=== PATIENT | male | born 1950 | race Caucasian/White ===

== ENCOUNTER → 2021-07-02 07:49 | Outpatient (CLI) | payer OTHER, SELFPAY ==
[2021-07-02 14:15] LABS: COVID19 -Nasal RAPID Negative (Negative)
== END ==
PROVIDERS: PCP Internal Medicine; Visit Provider Physical Medicine & Rehabilitation
DX: Z20.822 Contact with and (suspected) exposure to COVID-19 (principal)
CPT/HCPCS: 87635; C9803

== ENCOUNTER 2021-07-05 09:41 | Outpatient (CLI) | payer OTHER, SELFPAY ==
[2021-07-05] VITALS (8 sets, daily range): BP systolic 121–159; BP diastolic 56–72; PULSE 65–78; RESP 9–18; TEMP 36.6; O2SAT 96–100
--- NOTE | 2021-07-05 09:45 | DI.RAD.S_ITS ---
PROCEDURE: PAIN L/SI FACET INJ/BLK 1STL INDICATIONS: Right L3/4, L4/5, L5/S1 facet inj COMPARISON: [facility], RG, XR L-SPINE 2-3V, 05/07/2021, 11:00. [facility], CR, XR LUMBAR SPINE 2 OR 3 VIEWS, 05/17/2020, 8:15. FINDINGS: Fluoroscopic spot filming was performed to verify placement of spinal needles at the L3-L4, L4-L5 and L5-S1 level(s), as labeled on the films. Appropriate location(s) of the needle tip(s) was confirmed by injection of iodinated contrast. IMPRESSION: Fluoroscopy for pain management. Dictated by: Sol Esparza M.D. on 07/05/2021 at 17:00 Approved by: Sol Esparza M.D. on 07/05/2021 at 17:00
[2021-07-05] MEDS: fentaNYL 100 MCG/2 ML INJ 50 MCG IV (10:32)
[2021-07-05] MEDS: MIDAZOLAM 5 MG/5 ML VIAL IV (10:32)
[2021-07-05] MEDS: BUPIVACAINE 0.5% (PF) VIAL 5 ML INJ (10:36)
[2021-07-05] MEDS: BETAMETHASONE 30 MG/5 ML MDV 12 MG INJ (10:36)
[2021-07-05] MEDS: IOPAMIDOL 15 ML VIAL 3 ML INJ (10:37)
--- NOTE | 2021-07-05 10:45 | P.PCN_ITS ---
Date/Time/Diagnoses Date of procedure: 07/05/21 Time of procedure: 10:45 Pre-procedure diagnosis: 1. FACET ARTHROPATHY, 2. AXIAL LBP, 3. MULTILEVEL DDD Post-procedure diagnosis: same Procedure Notes Procedure: 1. FLUOROSCOPICALLY GUIDED CONTRAST CONTROLLED FACET JOINT INJECTIONS RIGHT L4/5, L5/S1 Indications: Levi is referred by Dr. Long for treatment of Axial LBP Physician: Ahsan Lui Total Fluoroscopy time (seconds): 6 Total sedation minutes: 9 Complications: none Procedure in detail & Post-procedure care: FINDINGS Multilevel Facet Arthropathy with Clinically significant axial LBP DESCRIPTION OF PROCEDURE Fluoroscopically guided, contrast-controlled right L4/5, L5/S1 facet joint injections. Following review of allergy and review of potential side effects and complications, including, but not necessarily limited to, infection, allergic reaction, local tissue breakdown, stroke, temporary or permanent nerve injury, paralysis, and possible , the patient indicated that the patient understood and agreed to proceed. An informed consent document was signed by the patient, witnessed by a nurse, and placed in the patient's chart. Additionally, other treatment options including medications, modalities, and physical therapy were reviewed with the patient. After review of previous anaesthesic history and IV conscious sedation the patient was deemed safe to proceed with today?s procedure with IV conscious sedation as ASA class II designation. Safety time-out was performed to confirm patient ID, procedure to be performed and site of procedure. IV sedation was accomplished with a combination of 2mg of Versed and 50mcg of Fentanyl was administered by the RN after DO order, titrated to patient comfort during the course of the procedure while the patient remained responsive to all verbal commands. In the prone position, following sterile prep and drape of the lumbar region, the posterior aspect of the right L4/5, L5/S1 facet joints were identified fluoroscopically. The skin was anesthetized via a 25-gauge 1.5-inch needle with 1% lidocaine solution into the corresponding facet joints. At this point, a 22- gauge 3.5-inch spinal needle was atraumatically introduced and advanced under fluoroscopic guidance into the corresponding facet joints. Following negative aspiration, injections of approximately 0.2-cc of Isovue 200 confirmed interarticular placement without vascular uptake. Radiological data, including multiple fluoroscopic views of the lumbosacral spine, reveal a spinal needle at the right L4/5, L5/S1 facet joints. Subsequent views show flow of contrast material both superiorly and inferiorly within the joint space without vascular or intrathecal uptake. At this point, a total of 0.5cc including a mixture of 0.25cc Marcaine and 0.25cc betamethasone was injected without complication into each of the corresponding facet joints. The procedure tolerated the procedure well without signs or symptoms of comp lications prior to transfer to the recovery area continued monitoring without incident. The patient was then transferred to the recovery area where they were observed for an appropriate period of time after the injection. The patient reported a VAS score of 7 prior to the procedure and a post-procedure VAS of 0. POST OP INSTRUCTIONS The patient was provided a Pain Log to continue to record their response to the target-specific procedure prior to follow-up visit with their referring physician. Additionally, specific post-injection care instructions and a contact number to our office were provided if concerns arise regarding possible complications associated with the procedure are suspected.
== END 2021-07-05 11:20 | disposition home or self-care (01) ==
LOC: RAD 09:45
PROVIDERS: PCP Internal Medicine; Referring Provider Physical Medicine & Rehabilitation; Visit Provider Physical Medicine & Rehabilitation
DX: M47.816 Spondylosis without myelopathy or radiculopathy, lumbar region (principal); M54.5 Low back pain; M51.36 Other intervertebral disc degeneration, lumbar region; M47.817 Spondylosis without myelopathy or radiculopathy, lumbosacral region; M51.37 Other intervertebral disc degeneration, lumbosacral region
CPT/HCPCS: 64493; 64494; 64495; 72020; 99151; 99152; J0702; J2250; J3010

== ENCOUNTER → 2021-08-14 15:36 | Outpatient (CLI) | payer OTHER, SELFPAY ==
[2021-08-14 17:17] LABS: COVID19 -Nasal RAPID Negative (Negative)
== END ==
PROVIDERS: PCP Internal Medicine; Visit Provider Urology
DX: Z20.822 Contact with and (suspected) exposure to COVID-19 (principal); N53.19 Other ejaculatory dysfunction; N53.12 Painful ejaculation; N35.812 Other bulbous urethral stricture, male; N21.0 Calculus in bladder
CPT/HCPCS: 81002; 87635

== ENCOUNTER 2021-08-16 06:33 | Day surgery (SDC) | payer OTHER, SELFPAY ==
[2021-08-13 08:40] VITALS: BMI 29.1
[2021-08-16] VITALS (9 sets, daily range): BP systolic 120–155; BP diastolic 62–83; PULSE 74–92; RESP 10–96; TEMP 36.2–37.2; O2SAT 11–98; BMI 29.1
[2021-08-16] MEDS: LACTATED RINGERS 1,000 ML 42 ML IV (07:37)
--- NOTE | 2021-08-16 07:43 | PM.PREOP ---
Pre-operative Note COVID-19 COVID-19 status: Negative Result date/Date tested (Pos, Neg/Pending): 08/14/21 Interval Note History & Physical reviewed/Exam performed by Physician: Yes Changes to H&P: No
[2021-08-16] MEDS: CEFAZOLIN 1 GM VIAL 2 GM IV (07:50)
--- NOTE | 2021-08-16 08:07 | SUR.OPER ---
Lithotomy on padded OR bed, head on pillow, arms secured on padded arm boards at <90 degrees abduction. Legs secured in padded yellow fins stirrups.
--- NOTE | 2021-08-16 08:31 | P.OP_ITS ---
Procedure & Clinicians Procedure: Cystoscopy with evacuation of bladder calculi and urethral dilation Same procedure as scheduled: Yes Indications: Is a very pleasant 71-year-old male who presented with complaints of painful and diminished ejaculation as well as lower urinary tract symptoms. He was found to have a series of her you bulbar urethral strictures and presents at this time for treatment there have. Surgeon: Jasson Holliday Click Yes if Unassisted: Yes Anesthesia Type: General Operative Notes Findings: Urethra normal to the bulbar urethra where there were series of urethral strictures looking like ?baffles ?. Prostatic fossa shows minimal to moderate obstructive character. Ureteral orifices in the bladder were in normal position with clear efflux. There were number of brown nelson small stones which were evacuated. At the end of procedure no stones left. Mucosa was otherwise normal no other abnormalities in the bladder. Urethra was dilated to 26 Bulgarian and a 22 Bulgarian 5 cc Roger catheter was left in the bladder with 10 cc of sterile water in the balloon. Closure Type: not applicable Specimen(s): other (Small bladder calculi) Applied: catheter Estimated Blood Loss (mL): 5 Blood products transfused: none Procedure in detail: Procedure in detail: After informed consent was obtained, the patient was identified and brought to the operating room. In the operating room he was placed in the supine position on the table and anesthesia was induced. After inducing and maintaining an appropriate level of anesthesia the patient was repositioned to the lithotomy position. He was then prepped with a sterilizing prepped and draped in a sterile fashion for transurethral procedure. After prepping, draping and ensuring an adequate level of anesthesia a 21 Bulgarian cystoscope was attempted to be passed into the meatus the meatus was too small and therefore dilated to 26 Bulgarian with Kelly sounds. The scope was then passed to the level of the strictures and they were observed. Given their appearance a Amplatz Ultra Stiff wire was passed through the strictures and ?within the bladder. The scope was then backed out. Cook ?S? dilators were then advanced sequentially from 14 through 20 Bulgarian. The wire was left in place the scope was passed along the wire and into the bladder. Once in the bladder the wire was removed. Cystoscopy was then performed and the bladder calculi were evacuated. With all calculi vacuum weighted cystoscopy performed the scope was then backed out. Kelly sounds were then applied and that the urethra was dilated from 20 through 26 Bulgarian sequentially. With urethra dilated the 22 Bulgarian catheter was passed through the urethra into the bladder without difficulty the balloon was filled with 10 cc of sterile water and placed to gravity drainage. The patient was then awakened and taken to the postanesthesia care unit having tolerated the procedure well the patient will follow-up in my office in approximately 5 days specifically next Friday for catheter removal. Complications: none Post-operative Condition: stable Disposition: PACU Plan for aftercare: Patient will be discharged to home with his Roger catheter.
--- NOTE | 2021-08-16 11:05 | SUR.PHASEII ---
Assumed care from JANET Mendoza who did d/c teaching with pt, pt now with leg bag and ramires supplies in pt belonging bag. Pt was ready to go, asssited to dress. Pt. c/o of small amount of burning, aware of letting Dr. Holliday per his instructions to give him a call if pt's discomfort increases to point of needing pain meds. 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 Pt left in stable condition.
[2021-08-22 16:16] LABS: Ca oxalate monohydr 10 % (.); Hydroxyapatite 90 % (.)
== END 2021-08-16 10:15 | disposition home or self-care (01) ==
PROVIDERS: PCP Internal Medicine; Referring Provider Urology; Visit Provider Urology
PROC: (CPT 52281; principal; 2021-08-16 07:45)
DX: N21.0 Calculus in bladder (principal); N35.912 Unspecified bulbous urethral stricture, male; N53.12 Painful ejaculation; R30.0 Dysuria
CPT/HCPCS: 52281; 82365; 82962; J0690; J2405; J2704; J3010

== ENCOUNTER → 2021-08-21 15:52 | Outpatient (CLI) | payer OTHER, SELFPAY ==
[2021-08-21 16:04] LABS: Appearance Urine UA CLEAR; Bilirubin Urine UA NEGATIVE (NEGATIVE); Color Urine UA YELLOW; Glucose Urine UA NEGATIVE (Negative); Ketones Urine UA NEGATIVE (NEGATIVE); Leukocyte Esterase Urine UA TRACE (NEGATIVE); Nitrite Urine UA NEGATIVE (Negative); Occult Blood Urine UA 2+ (Negative); Protein Urine UA NEGATIVE (Negative); Urobilinogen Urine UA 0.2 E.U./dL (0.2)
[2021-08-21 16:17] LABS: Culture Indicated Urine Cult Not Indicated; RBC Urine 5-10/HPF (0-5/HPF); WBC Urine 0-1/HPF (0-5/HPF)
[2021-08-21 21:23] LABS: Bacteria Urine None Seen
== END ==
PROVIDERS: PCP Internal Medicine; Visit Provider Urology
DX: N39.0 Urinary tract infection, site not specified (principal); N35.912 Unspecified bulbous urethral stricture, male
CPT/HCPCS: 51798; 81001

== ENCOUNTER → 2023-09-18 15:31 | Outpatient (CLI) | payer OTHER, SELFPAY ==
--- NOTE | 2023-09-18 15:34 | DI.MRI.S_ITS ---
PROCEDURE: MR PELVIC PROSTATE PROTOCOL INDICATIONS: Elevated PSA TECHNIQUE: Coronal HASTE, axial T1 FSE with fat saturation, 3-plane nonbreath-hold T2 FSE. After the administration of contrast, dynamic axial, delayed axial and coronal VIBE or 2-D FLASH with fat saturation through the pelvis. Restricted diffusion weighted imaging and ADC. COMPARISON: [facility], CR, XR LUMBAR SPINE WITH FLEXION EXTENSION 5 VIEWS, 01/17/2023, 15:02. [facility], MR, MR LUMBAR SPINE WITHOUT CONTRAST, 04/25/2023, 18:05. FINDINGS: Image quality: Diffusion weighted and dynamic contrast enhanced images are diagnostic. Prostate: Gland size is 5.9 x 4.9 x 4.6 cm; ellipsoid gland volume is 69 mL. No significant foci of intrinsic T1 hyperintensity to suggest hemorrhage. Multiple BPH nodules. Lesion size(s): Lesion 1: 1 x 0.6 cm, (4/12). Lesion location(s) (sector): Lesion 1: Left mid gland peripheral zone Lesion description: Lesion 1: Oval T2 weighted imaging (T2WI) morphology score: Lesion 1: 4 Diffusion weighted imaging (DWI) morphology score: Lesion 1: 4 Dynamic contrast enhancement (DCE): Lesion 1: Present Lesion PI-RADS score: Lesion 1: PI-RADS 4 Genitourinary system: Bladder wall has a trabeculated appearance. Focus of signal dropout in the right bladder measuring 0.6 cm, (4/5). This could represent a small stone in the bladder. Small bladder diverticulum, (6/10). Distal ureters are non distended. Bowel and peritoneum: No pathologic free pelvic fluid. Inferior colon and small bowel loops are normal in caliber. Nodes and vessels: No pelvic or inguinal adenopathy by size criteria. Iliac vessels are normal in caliber. Soft tissues: Possible small fat containing right inguinal hernia. Thickening in the region of the right inguinal canal could be due to prior hernia repair. Bones: Marrow demonstrates normal overall signal, without lesions to suggest metastases. IMPRESSION: 1. Prostatomegaly with multiple BPH nodules. Findings of bladder outlet obstruction. Suspect small bladder stone. 2. Left mid gland peripheral zone observation measuring 1 cm. PI-RADS 4. 3. No enlarged lymph nodes. Dictated by: Aron Da Silva M.D. on 09/19/2023 at 8:43 Approved by: Aron Da Silva M.D. on 09/19/2023 at 9:16
== END ==
PROVIDERS: PCP Internal Medicine; Referring Provider Urology; Visit Provider Urology
DX: N32.0 Bladder-neck obstruction (principal); N40.2 Nodular prostate without lower urinary tract symptoms; N40.0 Benign prostatic hyperplasia without lower urinary tract symptoms; R97.20 Elevated prostate specific antigen [PSA]
CPT/HCPCS: 72197; A9579

== ENCOUNTER → 2023-11-14 09:27 | Outpatient (CLI) | payer OTHER, SELFPAY ==
--- NOTE | 2023-11-14 09:29 | DI.CT.S_ITS ---
PROCEDURE: CT ABDOMEN PELVIS W CON INDICATIONS: New diagnosis prostate cancer TECHNIQUE: After the administration of intravenous contrast, axial sections acquired from the lung bases to the pubic symphysis. Coronal and sagittal reformats were performed. For radiation dose reduction, the following was used: automated exposure control, adjustment of mA and/or kV according to patient size. COMPARISON: None. FINDINGS: Image quality: Diagnostic. Lower Chest: No significant findings. ABDOMEN: Liver: No solid mass. Gallbladder: Partially decompressed. No calcifications or wall thickening. Biliary ducts: Nondilated. Pancreas: Normal. Spleen: Normal. Adrenal Glands: No adrenal nodules. Kidneys and Ureters: Symmetric enhancement. Occasional punctate nonobstructing intrarenal calculi bilaterally. Left renal parapelvic cyst. No hydronephrosis or hydroureter. 6 cm cyst arises posteriorly from the left kidney. Stomach and Bowel: Normal colonic caliber, without significant wall thickening. Stomach and small bowel loops are normal caliber. Peritoneum: No abnormal intraperitoneal fluid. No free air. Ventral Wall: No hernia. Abdominal Nodes: No retroperitoneal or mesenteric adenopathy by size criteria. Vessels: Aorta and inferior vena cava are normal in size. PELVIS: Pelvic Organs: The prostate gland is moderately enlarged and better described on recent prostate MRI. Bladder: There are either several calcifications, calcific plaque, or early excretion of contrast posteriorly within the urinary bladder. At least a 9 mm calcification was present previously on the MRI. Pelvic Nodes: No enlarged lymph nodes. Miscellaneous: There is a tiny right fat containing inguinal hernia and probable prior mesh repair of a left inguinal hernia. Bones: There are expected degenerative changes in the osseous structures without suspicious lesion. IMPRESSION: 1. No suspicious pelvic or retroperitoneal adenopathy. 2. Bladder calculi or early excretion of contrast dependently in the urinary bladder. Numerous punctate nonobstructing intrarenal calculi suggest these to be calcifications. 3. Tiny fat containing right inguinal hernia. Dictated by: Maday Dwyer M.D. on 11/14/2023 at 17:23 Approved by: Maday Dwyer M.D. on 11/14/2023 at 17:33
--- NOTE | 2023-11-14 09:29 | DI.NM.S_ITS ---
PROCEDURE: NM BONE SCAN WHOLE BODY RADIOPHARMACEUTICAL: 20.4 mCi Tc-99m MDP IV. INDICATIONS: New diagnosis prostate cancer TECHNIQUE: Delayed whole-body scintigrams were obtained approximately 3-4 hours after intravenous injection of radiotracer. Anterior and posterior views were acquired from vertex to feet. Additional left and right oblique views of the pelvis were obtained. COMPARISON: [facility], MR, MR THORACIC SPINE WITHOUT CONTRAST, 04/25/2023, 18:05. [facility], MR, MR CERVICAL SPINE WITHOUT CONTRAST, 02/20/2023, 11:06. [facility], MR, MR LUMBAR SPINE WITHOUT CONTRAST, 04/25/2023, 18:05. [facility], CT, CT ABDOMEN PELVIS W CON, 11/14/2023, 11:26. FINDINGS: No lesions are identified in skull, sternum, clavicles, scapulae, ribs, bony pelvis, and visualized shafts of the long bones. There are foci of increased uptake in cervical, thoracic and lumbar spine most likely secondary to degenerative disc and facet disease; early metastasis to spine could be obscured by degenerative changes. There are foci of increased periarticular activity compatible with degenerative/arthritic changes. IMPRESSION: No definitive scintigraphic findings to suggest osseous metastasis. Dictated by: Sol Esparza M.D. on 11/14/2023 at 15:43 Approved by: Sol Esparza M.D. on 11/14/2023 at 16:14
[2023-11-14 10:03] LABS: BUN Creatinine Ratio 20.9 (6-22); Blood Urea Nitrogen 19 mg/dL (9-20); Calcium 9.3 mg/dL (8.4-10.2); Carbon Dioxide 31 mmol/L (22-32); Chloride 101 mmol/L (98-107); Estimated Glomerular Filt Rate > 60 mL/min (>60); Glucose 98 mg/dL (80-110); HEMOLYSIS 18 (0-50); Potassium 4.1 mmol/L (3.4-5.1); Sodium 135 mmol/L (137-145)
== END ==
PROVIDERS: PCP Internal Medicine; Referring Provider Urology; Visit Provider Urology
DX: C61 Malignant neoplasm of prostate (principal); R97.20 Elevated prostate specific antigen [PSA]; N20.0 Calculus of kidney
CPT/HCPCS: 36415; 74177; 78306; 80048; A9503

== ENCOUNTER 2023-12-02 06:38 | Day surgery (SDC) | payer OTHER, SELFPAY ==
[2023-11-25 15:08] VITALS: BMI 24.4
[2023-12-02] VITALS (8 sets, daily range): BP systolic 133–152; BP diastolic 55–79; PULSE 8–78; RESP 10–16; TEMP 36.6–36.8; O2SAT 10–99; BMI 23.6
[2023-12-02] MEDS: ACETAMINOPHEN 325 MG TABLET 975 MG PO (07:35)
[2023-12-02] MEDS: LACTATED RINGERS 1,000 ML 42 ML IV (07:36)
--- NOTE | 2023-12-02 07:43 | PM.PREOP ---
Pre-operative Note COVID-19 COVID-19 status: Not tested Interval Note History & Physical reviewed/Exam performed by Physician: Yes Changes to H&P: No
--- NOTE | 2023-12-02 07:56 | SUR.OPER ---
Lithotomy on padded OR bed, head on pillow, arms secured on padded arm boards at <90 degrees abduction. Legs secured in padded yellow fins stirrups.
[2023-12-02] MEDS: CEFAZOLIN 2 GM/100 ML PREMIX 100 ML IV (07:59)
--- NOTE | 2023-12-02 09:06 | PM.OP.1 ---
Procedure & Clinicians Procedure: Cystolitholapaxy (mechanical), urethral dilation, evacuation of stone fragments, placement of Roger catheter Same procedure as scheduled: Yes Indications: This 73-year-old gentleman now undergoing workup for hematuria was found to have recurrent bladder calculi. Patient has a history of urethral stricture and presents this time for cystolitholapaxy evacuation of stone fragments and treatment of any stricture that is noted. Surgeon: Jasson Holliday Click Yes if Unassisted: Yes Anesthesia Type: General Operative Notes Findings: Findings: Urethral meatus was somewhat narrowed though not strictured and required dilation to accept the scope. This was dilated to 26 Burundian. In the proximal to mid bulbar urethra there was recurrent stricture which also required dilation. This was also dilated to 26 Burundian quite easily. Prostatic fossa showed moderate obstructive character. Ureteral orifices in normal position with clear efflux. Within the bladder there were multiple stones some very very small 1 larger stone approximately 2 cm in diameter though very flat. There were multiple diverticula, trabeculation and cellules no mucosal lesions or other abnormalities were noted. A 20 Burundian 5 cc Roger catheter was left in place given the urethral dilation. The catheter had 14 cc placed in his balloon. There were no other abnormalities. Closure Type: not applicable Specimen(s): other (Stones and stone fragments) Prosthetic devices, grafts, tissues, transplants, or devices: [address] Roger catheter with 14 cc in the balloon. Applied: catheter (Twenty Burundian [address] Roger catheter 14 cc in the balloon) Estimated Blood Loss (mL): 5 Blood products transfused: none Procedure in detail: Procedure in detail: After informed consent was obtained, the patient was identified brought to the operating room placed in supine position on table where anesthesia was induced to maintained. Sharing an adequate level of anesthesia the patient was transitioned to the lithotomy position where he was prepped, draped, prepared for Transurethral procedure. Ensuring an adequate level of anesthesia and after prepping and draping and time-out and administration of antibiotics a 22 Burundian cystoscope was attempted to pass through the meatus the meatus was not accepting of this and so it was dilated with Kelly sounds from 18 to 26 Burundian. The scope was then passed to the level of the stricture which was approximately 9-10 Burundian. A Amplatz superstiff wire was then passed through the stricture and curled within the bladder. Scope was backed out and cook S dilators were then employed to dilate sequentially up to 20 Burundian. Yeung sounds were then used to dilate from 20-26 Burundian. At this point the wire was left in place and the scope passed alongside the wire and into the bladder. The wire was then removed. At this point the smaller stone fragments were evacuated and the bridge exchange for the mechanical lithotrite and the larger stone was fragmented. The fragments were then washed out using a 32 and 70 degree lens to ensure that all fragments were removed as well as stones. Each of the diverticula was then visualized and any fragments there were also removed. At this point with all fragments were removed the scope was removed and the urethra visualized. At this point the 20 Burundian 5 cc Roger catheter was passed through the urethra and into the bladder with the balloon was filled with 14 cc of sterile water and placed to gravity drainage. The patient was then awakened having tolerated the procedure well to be transferred to the postanesthesia care unit for recovery. There were no complications the patient will go home with a Roger catheter to follow-up in my office in approximately 14 days for follow-up visit and voiding trial. Complications: none Post-operative Condition: stable Disposition: PACU Plan for aftercare: Home with Roger catheter to follow up my office in approximately 14 days
[2023-12-02] MEDS: OXYCODONE IR 5 MG TABLET PO (09:38)
[2023-12-09 13:42] LABS: Ca oxalate dihydrate 50 % (.); Ca oxalate monohydr 20 % (.); Hydroxyapatite 30 % (.); Size 7x4 mm (.)
== END 2023-12-02 10:35 | disposition home or self-care (01) ==
PROVIDERS: PCP Internal Medicine; Referring Provider Urology; Visit Provider Urology
PROC: 0TCB8ZZ Extirpation of Matter from Bladder, Via Natural or Artificial Opening Endoscopic (ICD-10-PCS; CPT 52318; principal; 2023-12-02 07:45)
DX: N21.0 Calculus in bladder (principal); N35.911 Unspecified urethral stricture, male, meatal
CPT/HCPCS: 52318; 82365; J0690; J1100; J2405; J2704; J3010

== ENCOUNTER → 2023-12-18 14:29 | Outpatient (CLI) | payer OTHER, SELFPAY | PROVIDERS: PCP Internal Medicine; Visit Provider Urology | DX: C61 Malignant neoplasm of prostate (principal); N35.812 Other bulbous urethral stricture, male; N53.19 Other ejaculatory dysfunction; R35.1 Nocturia; R39.9 Unspecified symptoms and signs involving the genitourinary system; R97.20 Elevated prostate specific antigen [PSA]; Z87.448 Personal history of other diseases of urinary system | CPT/HCPCS: 51798; 81002; 87086 ==

== ENCOUNTER → 2024-06-28 14:21 | Outpatient (CLI) | payer OTHER, SELFPAY ==
[2024-07-01 07:38] LABS: PSA Free % 13.7 % (.)
== END ==
PROVIDERS: PCP Internal Medicine; Referring Provider Urology; Visit Provider Urology
DX: R97.20 Elevated prostate specific antigen [PSA] (principal)
CPT/HCPCS: 36415; 84153; 84154

== ENCOUNTER → 2024-09-28 14:35 | Outpatient (CLI) | payer OTHER, SELFPAY ==
[2024-09-28 15:24] LABS: Add Manual Diff / Slide Review NO; Basophils Absolute Auto 0 /uL (0-100); Basophils Percent Auto 0.6 % (0-2); Eosinophils Absolute Auto 100 /uL (0-450); Eosinophils Percent Auto 1.2 % (2-4); Hematocrit 37.7 % (41-53); Hemoglobin 13.1 g/dL (13.5-17.5); Lymphocytes Absolute Auto 1900 /uL (1100-4500); Lymphocytes Percent Auto 30.5 % (25-40); Mean Corpuscular HGB Conc 34.6 % (30-36); Mean Corpuscular Hemoglobin 33.2 PG (26-34); Mean Corpuscular Volume 96.1 fL (80-100); Monocytes Absolute Auto 600 /uL (0-900); Monocytes Percent Auto 9.9 % (3-14); Neutrophils Absolute Auto 3600 /uL (1500-7000); Neutrophils Percent Auto 57.8 % (50-75); Platelet Count 219 X10^3/uL (150-400); Red Blood Cell Count 3.93 X10^6/uL (4.5-5.9); Red Cell Distribution Width 13.5 % (11.6-14.8); White Blood Cell Count 6.2 X10^3/uL (4.5-11.0)
[2024-09-28 15:46] LABS: BUN Creatinine Ratio 20.4 (6-22); Blood Urea Nitrogen 20 mg/dL (9-20); Calcium 9.6 mg/dL (8.4-10.2); Carbon Dioxide 30 mmol/L (22-32); Chloride 102 mmol/L (98-107); Cholesterol 199 mg/dL (140-199); Estimated Glomerular Filt Rate > 60 mL/min (>60); Glucose 79 mg/dL (80-110); HEMOLYSIS < 15 (0-50); Potassium 4.4 mmol/L (3.4-5.1); Sodium 137 mmol/L (137-145); Triglycerides 67 mg/dL (35-150)
[2024-09-28 16:02] LABS: HDL Cholesterol 147 mg/dL (40-60); LDL Cholesterol Calculated 39 mg/dL (<100)
[2024-09-28 16:15] LABS: Prostate Specific Antigen 7.73 ng/mL (0.10-4.00)
== END ==
PROVIDERS: PCP Nurse Practitioner Family; Referring Provider Urology; Visit Provider Urology
DX: C61 Malignant neoplasm of prostate (principal); E78.5 Hyperlipidemia, unspecified; N53.19 Other ejaculatory dysfunction; R97.20 Elevated prostate specific antigen [PSA]; R39.9 Unspecified symptoms and signs involving the genitourinary system; Z87.448 Personal history of other diseases of urinary system
CPT/HCPCS: 36415; 80048; 80061; 84153; 85025

== ENCOUNTER → 2024-12-28 14:17 | Outpatient (CLI) | payer MEDICARE, SELFPAY ==
[2024-12-28 16:23] LABS: Prostate Specific Antigen 6.74 ng/mL (0.10-4.00)
== END ==
PROVIDERS: PCP Nurse Practitioner Family; Referring Provider Urology; Visit Provider Urology
DX: C61 Malignant neoplasm of prostate (principal)
CPT/HCPCS: 36415; 84153

== ENCOUNTER 2025-03-22 15:55 | Emergency (ER) | payer MEDICARE, SELFPAY ==
[2025-03-22] VITALS (10 sets, daily range): BP systolic 140–157; BP diastolic 65–75; PULSE 65–73; RESP 16; TEMP 36.3–36.6; O2SAT 98–100; BMI 23.1
--- NOTE | 2025-03-22 16:02 | EKG_ITS ---
[address] [address] Test Date: 2025-03-22 Pat Name: Levi Rizo Department: Room: Gender: Male Cio: FRANSISCA : 1950 Requested By: Order Number: [id number] Reading MD: Salbador Torres MD Measurements Intervals [place] Rate: 75 P: 74 OK: 166 QRS: 73 QRSD: 90 T: 83 QT: 392 QTc: 437 Interpretive Statements Normal sinus rhythm Electronically Signed On 03-22-2025 16:51:41 PDT by Salbador Torres MD
--- NOTE | 2025-03-22 16:33 | DI.RAD.S_ITS ---
PROCEDURE: XR CHEST 1V INDICATIONS: Chest Pain TECHNIQUE: One view of the chest was acquired. COMPARISON: [facility], CR, XR CHEST 1 VIEW, 02/01/2019, 11:24. FINDINGS: Surgical changes and devices: None. Lungs and pleura: Lungs are clear. No pleural effusions or pneumothorax. Mediastinum: Mediastinal contours appear normal. Heart size is normal. Bones and chest wall: No suspicious bony lesions. Overlying soft tissues appear unremarkable. IMPRESSION: No acute cardiopulmonary abnormality is seen. Dictated by: Aroldo Campa M.D. on 03/22/2025 at 16:57 Approved by: Aroldo Campa M.D. on 03/22/2025 at 16:58
[2025-03-22 16:40] LABS: Add Manual Diff / Slide Review NO; Basophils Absolute Auto 0 /uL (0-100); Basophils Percent Auto 0.6 % (0-2); Eosinophils Absolute Auto 100 /uL (0-450); Hematocrit 38.7 % (41-53); Hemoglobin 13.1 g/dL (13.5-17.5); INR 0.9 (0.9-1.3); Lymphocytes Absolute Auto 1800 /uL (1100-4500); Lymphocytes Percent Auto 28.8 % (25-40); Mean Corpuscular HGB Conc 33.8 % (30-36); Mean Corpuscular Hemoglobin 32.3 PG (26-34); Mean Corpuscular Volume 95.6 fL (80-100); Monocytes Absolute Auto 700 /uL (0-900); Monocytes Percent Auto 10.8 % (3-14); Neutrophils Absolute Auto 3700 /uL (1500-7000); Neutrophils Percent Auto 58.8 % (50-75); Platelet Count 209 X10^3/uL (150-400); Red Blood Cell Count 4.05 X10^6/uL (4.5-5.9); Red Cell Distribution Width 13.8 % (11.6-14.8); White Blood Cell Count 6.3 X10^3/uL (4.5-11.0)
[2025-03-22 16:43] LABS: PTT Partial Thromboplastin Tim 31 SECONDS (25.1-36.5)
[2025-03-22 16:47] LABS: Lactate (Lactic Acid) 0.8 mmol/L (0.7-2.1)
[2025-03-22 16:48] LABS: Alanine Aminotransferase 20 IU/L (<50); Albumin 4.2 g/dL (3.5-5.0); Albumin Globulin Ratio 1.8 (1.0-2.8); Alkaline Phosphatase 61 U/L (38-126); Aspartate Aminotransferase 30 IU/L (17-59); BUN Creatinine Ratio 30.1 (6-22); Bilirubin Total 0.7 mg/dL (0.2-1.3); Blood Urea Nitrogen 28 mg/dL (9-20); Calcium 9.3 mg/dL (8.4-10.2); Carbon Dioxide 29 mmol/L (22-32); Chloride 103 mmol/L (98-107); Creatine Kinase 60 U/L (55-170); Estimated Glomerular Filt Rate > 60 mL/min (>60); Globulin 2.4 g/dL (1.7-4.1); Glucose 89 mg/dL (70-99); HEMOLYSIS < 15 (0-50); Lipase 122 U/L (23-300); Magnesium 1.9 mg/dL (1.6-2.3); Potassium 4.5 mmol/L (3.4-5.1); Sodium 136 mmol/L (137-145); Total Protein 6.6 g/dL (6.3-8.2)
[2025-03-22 16:59] LABS: NT-proBNP (BNP-Adult 18+) 146 pg/mL (<450); Troponin I < 0.012 ng/mL (0.01-0.034)
--- NOTE | 2025-03-22 17:19 | PC.NURSE ---
This RN checks on patient. Reports he needs to use bathroom. Stands and ambulates without assistance. Steady on feet. A&O.
--- NOTE | 2025-03-22 17:20 | ED_ITS ---
HPI - Weakness General Chief complaint: Weakness Stated complaint: weakness, low energy, prostate cx patient Time Seen by Provider: 03/22/25 16:51 History of Present Illness HPI Narrative: Patient here for generalized weakness malaise insomnia anxiety decreased appetite with a 40 lb weight loss in past 2 years. Most recently 4 lb in the past 3 weeks. In the past few weeks he has had worsening of anxiety and stress. He does not like his job or where he is working out. He is only getting 4 or 5 hours of sleep at night. He has very little interest in things. No SI no HI no hallucinations no alcohol or drug abuse. Related Data Previous Rx's Medication Instructions Recorded tamsulosin 0.4 mg capsule 0.4 mg PO BEDTIME #90 caps 12/20/24 hydroxyzine HCl 25 mg tablet 25 mg PO QID PRN Anxiety/sleep #20 03/22/25 tabs hydroxyzine HCl 25 mg tablet 25 mg PO QID PRN itching #20 tabs 03/22/25 Allergies Allergy/AdvReac Type Severity Reaction Status Date / Time No Known Drug Allergies Allergy Verified 03/22/25 16:27 Review of Systems Review of Systems Narrative: GENERAL: Negative chills, positive fatigue, malaise, negative fever, sweats. HEENT: Negative sinus pain, ear pain, sore throat RESPIRATORY: Negative dyspnea, cough CARDIOVASCULAR: Negative chest pain, palpitations GASTROINTESTINAL: Negative vomiting, nausea, abdominal pain : Negative dysuria, frequency, hematuria MUSCULOSKELETAL: Negative muscle or bony pain SKIN: Negative rash, skin lesions NEUROLOGIC: Negative weakness, numbness Psychiatric: Positive anxiety ROS Unobtainable: All systems reviewed & are unremarkable except as noted in HPI and below Patient History Medical History (Updated 03/22/25 @ 18:35 by Jasson Thompson MD) History of urethral stricture Wears glasses Decreased hearing Osteoarthritis COVID (~2021) Depression (~1999) Anxiety (~1999) Chronic back pain Mumps Measles Chicken pox Herpes Prostate cancer (~2023) Lower urinary tract symptoms History of bladder stone Elevated PSA (~2023) UTI (urinary tract infection) Urethral stricture Abnormal ejaculation Pain with ejaculation BPH associated with nocturia Nocturia Lumbosacral radiculopathy at L4 Spondylolisthesis at L4-L5 level Facet arthropathy, lumbar Surgical History (Updated 08/11/24 @ 18:32 by Felicitas Martinez) Anesthesia Hx of cystoscopy (08/16/21) Hx of cystoscopy (06/18/21) H/O rotator cuff surgery History of incisional hernia repair History of tonsillectomy and adenoidectomy Family History (Updated 08/11/24 @ 18:33 by Felicitas Martinez) Father Cancer Mother Stroke Social History household members: significant other alcohol intake: current Smoking Status: Former smoker alcohol intake frequency: a few times a week Alcohol type: hard liquor Exam Narrative Exam Narrative: GENERAL: in no distress, not toxic not dyspneic HEAD: Normocephalic. EYES: Pupils equal round ENT: Mucous membranes moist. NECK: Trachea midline. No thyromegaly CARDIOVASCULAR: Regular rate and rhythm RESPIRATORY: Clear to auscultation. Breath sounds equal bilaterally. No wheezes, rales, or rhonchi. GASTROINTESTINAL: Abdomen soft, non-tender EXTREMITIES: No gross deformities. BACK: No flank tenderness. NEURO: AOx4. Clear speech, up and walking to the bathroom steady self gait no ataxia. SKIN: Warm and dry PSYCH: Not anxious, is cooperative Initial Vital Signs Initial Vital Signs: Vital Signs Pulse Rate 70 03/22/25 16:07 Pulse Oximetry 98 03/22/25 16:07 Course Orders Ordered: Discontinued Medications Sodium Chloride (Normal Saline 0.9%) 1,000 mls @ 1,000 mls/hr IV BOLUS ONE Stop: 03/22/25 18:17 Last Infusion: 03/22/25 18:30 Dose: Infused Documented By: Admin: 03/22/25 17:26 Dose: 1,000 mls/hr Documented By: NATALIE Vital Signs Vital signs: Vital Signs - 8 hr 03/22/25 16:07 03/22/25 16:20 03/22/25 16:20 Temperature Pulse Rate 70 69 Respiratory Rate Blood Pressure 147/71 H Pulse Oximetry 98 100 Oxygen Delivery Method 03/22/25 16:29 03/22/25 16:30 03/22/25 16:30 Temperature 97.4 F L Pulse Rate 69 72 Respiratory Rate 16 Blood Pressure 154/70 H 150/70 H Pulse Oximetry 98 100 Oxygen Delivery Method Room Air 03/22/25 17:00 03/22/25 17:00 Temperature Pulse Rate 69 Respiratory Rate Blood Pressure 140/65 Pulse Oximetry 98 Oxygen Delivery Method MDM - Weakness Lab Data 03/22/25 16:19 03/22/25 16:19 Labs: Lab Results 03/22/25 03/22/25 03/22/25 Range/Units 16:19 17:17 17:17 WBC 6.3 (4.5-11.0) X10^3/uL RBC 4.05 L (4.5-5.9) X10^6/uL Hgb 13.1 L (13.5-17.5) g/dL Hct 38.7 L (41-53) % MCV 95.6 (80-100) fL MCH 32.3 (26-34) PG MCHC 33.8 (30-36) % RDW 13.8 (11.6-14.8) % Plt Count 209 (150-400) X10^3/uL Neut % (Auto) 58.8 (50-75) % Lymph % (Auto) 28.8 (25-40) % [place] % (Auto) 10.8 (3-14) % Eos % (Auto) 1.0 L (2-4) % Baso % (Auto) 0.6 (0-2) % Neut # (Auto) 3700 (2860-0794) /uL Lymph # (Auto) 1800 (3650-5064) /uL [place] # (Auto) 700 (0-900) /uL Eos # (Auto) 100 (0-450) /uL Baso # (Auto) 0 (0-100) /uL PT 10.0 (9.4-12.5) SECONDS INR 0.9 (0.9-1.3) APTT 31 (25.1-36.5) SECONDS Sodium 136 L (137-145) mmol/L Potassium 4.5 (3.4-5.1) mmol/L Chloride 103 (98-107) mmol/L Carbon Dioxide 29 (22-32) mmol/L BUN 28 H (9-20) mg/dL Creatinine 0.93 (0.66-1.25) mg/dL Estimated GFR > 60 (>60) mL/min BUN/Creatinine Ratio 30.1 H (6-22) Glucose 89 (70-99) mg/dL Lactate 0.8 (0.7-2.1) mmol/L Calcium 9.3 (8.4-10.2) mg/dL Magnesium 1.9 (1.6-2.3) mg/dL Total Bilirubin 0.7 (0.2-1.3) mg/dL AST 30 (17-59) IU/L ALT 20 (<50) IU/L Alkaline Phosphatase 61 (38-126) U/L Total Creatine Kinase 60 (55-170) U/L Troponin I < 0.012 (0.01-0.034) ng/mL NT-Pro-B Natriuret Pep 146 (<450) pg/mL Total Protein 6.6 (6.3-8.2) g/dL Albumin 4.2 (3.5-5.0) g/dL Globulin 2.4 (1.7-4.1) g/dL Albumin/Globulin Ratio 1.8 (1.0-2.8) Lipase 122 (23-300) U/L TSH 1.11 (0.47-4.68) uIU/mL Urine Color Yellow Urine Appearance Clear Urine pH 6.0 Normal (4.5-8.0) Ur Specific [place] 1.015 (1.000-1.035) Urine Protein Negative (Negative) Urine Glucose (UA) Negative (Negative) g/dL Urine Ketones Trace H (NEGATIVE) Urine Occult Blood Negative (Negative) Urine Nitrate Negative (Negative) Urine Bilirubin Negative (NEGATIVE) Urine Urobilinogen 0.2 (0.2) E.U./dL Ur Leukocyte Esterase Negative (NEGATIVE) Urine RBC 0-1/hpf (0-5/HPF) Urine WBC 0-1/hpf (0-5/HPF) Ur Squamous Epith Cells 0-1 /hpf (0-5/HPF) Urine Bacteria Occasional (0-1) (None) Ur Culture Indicated? Cult not indicated Vol Urine Centrifuged 10ml (spun) U Opiates 300ng/mL cut Negative (Negative) Ur Oxycodone Screen Negative (Negative) Urine Methadone Screen Negative (Negative) Ur Barbiturates Screen Negative (Negative) U Tricyclic Antidepress Negative (Negative) Ur Phencyclidine Scrn Negative (Negative) Ur Amphetamines Screen Negative (Negative) U Methamphetamines Scrn Negative (Negative) Ur MDMA Scrn (Ecstasy) Negative (Negative) U Benzodiazepines Scrn Negative (Negative) Urine Cocaine Screen Negative (Negative) U Marijuana (THC) Screen Negative (Negative) Urine Specific [place] Normal (Normal) Ethyl Alcohol < 10 ( - 10) mg/dL Ur Creatinine Normal (Normal) Imaging Data Chest x-ray: Radiologist Impression: [address] [address] XRay Report Signed Patient: Levi Rizo MR#: [id number] : 1950 Acct:[id number] Age/Sex: 74 / M Date of Service: 03/22/25 Loc: ED Accession Number: [id number] Procedure: XR chest 1V Ordering Provider: Jasson Thompson MD PROCEDURE: XR CHEST 1V INDICATIONS: Chest Pain TECHNIQUE: One view of the chest was acquired. COMPARISON: [facility], , XR CHEST 1 VIEW, 02/01/2019, 11:24. FINDINGS: Surgical changes and devices: None. Lungs and pleura: Lungs are clear. No pleural effusions or pneumothorax. Mediastinum: Mediastinal contours appear normal. Heart size is normal. Bones and chest wall: No suspicious bony lesions. Overlying soft tissues appear unremarkable. IMPRESSION: No acute cardiopulmonary abnormality is seen. Dictated by: Aroldo Campa M.D. on 03/22/2025 at 16:57 Approved by: Aroldo Campa M.D. on 03/22/2025 at 16:58 CT chest abdomen pelvis: Radiologist Impression: [address] [address] [address] Scan Report Signed Patient: Levi Rizo MR#: [id number] : 1950 Acct:[id number] Age/Sex: 74 / M Date of Service: 03/22/25 Loc: ED Accession Number: [id number] Procedure: CT chest abd pel w con Ordering Provider: Jasson Thompson MD PROCEDURE: CT CHEST ABD PEL W CON INDICATIONS: IV contrast only/prostate cancer/weight loss/appetite loss TECHNIQUE: After the administration of intravenous contrast, 5 mm thick sections acquired from the lung apices to the symphysis. 5 mm coronal and sagittal reformats were performed, with additional 7 mm MIP reformats through the lungs. For radiation dose reduction, the following was used: automated exposure control, adjustment of mA and/or kV according to patient size. COMPARISON: [facility], CT, CT ABDOMEN PELVIS W CON, 11/14/2023, 11:26. FINDINGS: Image quality: Excellent. CHEST: Lower Neck: No enlarged lymph nodes. Thyroid: No thyroid nodules which require sonographic follow up, per consensus guidelines. Axillae: No enlarged lymph nodes. Chest Wall: Unremarkable. Lungs and Pleura: No pneumothorax or pleural effusions. No consolidation or suspicious nodules. Heart: Heart size is normal. Mild coronary artery calcifications. No pericardial effusion. Thoracic Vessels: The aorta and pulmonary arteries demonstrate normal size. Mediastinum and Angie: No enlarged lymph nodes. Esophagus: No wall thickening. No hiatal hernia. ABDOMEN: Liver: No solid mass. Gallbladder: No radiopaque gallstones or wall thickening. Biliary ducts: No biliary dilation. Pancreas: No ductal dilation. Spleen: Size is within normal limits. Adrenal Glands: No adrenal nodules. Kidneys and Ureters: No hydronephrosis. No solid mass. No complex renal cystic lesion which requires follow up. Stomach and Bowel: Normal colonic caliber, without significant wall thickening. Diverticulosis without evidence of acute diverticulitis. Peritoneum: No abnormal intraperitoneal fluid. No free air. Ventral Wall: No significant ventral hernia. Abdominal Nodes: No retroperitoneal or mesenteric adenopathy by size criteria. Vessels: Aorta and inferior vena cava are normal in size. Atherosclerotic vascular calcifications. PELVIS: Pelvic Organs: Prostatomegaly. Bladder: No bladder wall thickening, accounting for underdistention. Pelvic Nodes: No enlarged lymph nodes. Miscellaneous: No inguinal hernias are seen. Bones: No aggressive osseous abnormality. Multilevel degenerative changes of the spine. IMPRESSION: 1. No acute findings within the chest, abdomen or pelvis. 2. Prostatomegaly. No findings concerning for metastatic disease. 3. Diverticulosis without evidence of acute diverticulitis. 4. Please see above for additional findings. Dictated by: Aroldo Campa M.D. on 03/22/2025 at 18:14 Approved by: Aroldo Campa M.D. on 03/22/2025 at 18:21 MDM Narrative Medical decision making narrative: Patient here for generalized weakness malaise insomnia anxiety decreased appetite with a 40 lb weight loss in past 2 years. Most recently 4 lb in the past 3 weeks. In the past few weeks he has had worsening of anxiety and stress. He does not like his job or where he is working out. He is only getting 4 or 5 hours of sleep at night. He has very little interest in things. No SI no HI no hallucinations no alcohol or drug abuse. Patient is being followed by his urologist for prostate cancer. No active cancer treatment at this time. Just monitoring. After history and exam, CBC CMP EKG chest x-ray CT chest abdomen pelvis urinalysis social work consult TSH alcohol level drug screen MDM Medical records reviewed: No recent visit for this complaint. Differential considered: Includes but not limited to fatigue anxiety dehydration metastatic prostate cancer Lab Test results independently reviewed as above. Pertinent findings: WBC 6.3 hemoglobin 13 sodium 136 potassium 4.5 BUN 28 creatinine 0.93 glucose 89 AST 30 ALT 20 troponin less than 0.012 BNP 146, urinalysis negative nitrate negative leukocyte esterase drug screen negative alcohol negative, TSH 1.1 Independently reviewed EKG normal sinus rhythm normal EKG rate 75 Imaging studies independently reviewed: Chest x-ray no acute finding, CT chest abdomen pelvis no acute finding Consultations: 6:27 p.m.. 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 One of the triggers recently was his stepfather . This is added to his anxiety, he does desire outpatient resources. Does not want inpatient admission. She offered to contact his family doctor but he states he will do it himself. Re-evaluations: 6:30 p.m. her updated patient results and his discussion with social service manager for he agrees with treatment plan. He will try hydroxyzine. He will contact his family doctor as well for follow up. Discussion: Appropriate for discharge home exam is reassuring. Return precautions reviewed with patient. Laboratory studies and images were reassuring. Social work saw patient. He desires discharge home. Prescription for Vistaril/hydroxyzine provided. He desires discharge home Diagnosis: Anxiety, fatigue Discharge Plan Departure Patient Disposition: Home Clinical Impression: Anxiety Fatigue Qualifiers: Fatigue type: unspecified Qualified Code(s): R53.83 - Other fatigue Instructions: DI for Anxiety -- Adult, DI for Fatigue Activity Restrictions/Additional Instructions: Please see your family doctor and contact provided resources from the social service manager today. Work note has been provided for you in case he needed for this week to get plenty of rest and get some items in order. Prescription to help for sleep and anxiety has been sent to your pharmacy to roller picker and start tonight. Return if worse if any questions or concerns. Today's laboratory studies exam and imaging studies are reassuring. Prescriptions: New hydroxyzine HCl 25 mg tablet 25 mg PO QID PRN (Reason: itching) Qty: 20 0RF hydroxyzine HCl 25 mg tablet 25 mg PO QID PRN (Reason: Anxiety/sleep) Qty: 20 0RF No Action tamsulosin 0.4 mg capsule 0.4 mg PO BEDTIME Qty: 90 3RF Referrals: Deidre Tellez FNP-BC [Primary Care Provider] - Stand Alone Forms: Patient Portal/API/Survey, Work Release Note
[2025-03-22] MEDS: SODIUM CHLORIDE 0.9% 1,000 ML 1000 ML IV (17:26)
[2025-03-22 17:33] LABS: Ethanol (ETOH) < 10 mg/dL
[2025-03-22 17:36] LABS: Appearance Urine UA CLEAR; Bilirubin Urine UA NEGATIVE (NEGATIVE); Color Urine UA YELLOW; Glucose Urine UA NEGATIVE (Negative); Ketones Urine UA TRACE (NEGATIVE); Leukocyte Esterase Urine UA NEGATIVE (NEGATIVE); Nitrite Urine UA NEGATIVE (Negative); Occult Blood Urine UA NEGATIVE (Negative); Protein Urine UA NEGATIVE (Negative); Specific Gravity Urine UA 1.015 (1.000-1.035); Urobilinogen Urine UA 0.2 E.U./dL (0.2)
[2025-03-22 17:42] LABS: Bacteria Urine Occasional (0-1); Culture Indicated Urine Cult Not Indicated; RBC Urine 0-1/HPF (0-5/HPF); Squamous Epithelial Cell Urine 0-1 /HPF (0-5/HPF); UR Morphine/Opiate cutoff 300 Negative (Negative); Ur Creatinine Normal (Normal); Ur Specific Gravity Normal (Normal); Urine Amphetamines Negative (Negative); Urine Barbiturates Negative (Negative); Urine Benzodiazepines Negative (Negative); Urine Cocaine Negative (Negative); Urine MDMA Negative (Negative); Urine Methadone Negative (Negative); Urine Methamphetamines Negative (Negative); Urine Oxycodone Negative (Negative); Urine Phencyclidine Negative (Negative); Urine Tetrahydrocannabinol Negative (Negative); Urine Tricyclic Antidepressant Negative (Negative); Urine Volume 10mL (spun); Urine pH Normal (Normal); WBC Urine 0-1/HPF (0-5/HPF)
[2025-03-22 18:04] LABS: Thyroid Stimulating Hormone 1.11 uIU/mL (0.47-4.68)
--- NOTE | 2025-03-22 18:43 | CM.SWNOTE ---
ED APPLICATION DEVELOPMENT TEAM LEAD Note Patient is 74 y/o male who presents to the ED due to concern for increased weakness, fatigue, lack of sleep and increase in stress and anxiety. Patient reports he has not been eating due to lack of appetite. Patient initially went to [facility] but they recommended patient come to the ED. Patient states he was recently triggered by the loss of his step dad. Patient's PCP is EDNA Hodges, patient also sees urologist Dr. Holliday due to hx of Prostate cancer. Patient has [facility] Advantage insurance. APPLICATION DEVELOPMENT TEAM LEAD enters room to meet with patient, patient presents as anxious. Patient presents as A/Ox4, reports concern for some memory issues due to stress. Patient states he is always worrying and stressed out. 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 Patient states he resides in an apartment with a friend because he cannot afford to live alone and he does not qualify for low income housing because he makes too much. Patient states he receives Social Security and a [employer] pension but that is still not enough income. Patient presents with concern about his spending habit and past financial decisions and is very worried about the cost of this ED visit and what his insurance company will say. Patient endorses his sleep and appetite are impacted by stress. Patient endorses that he tries to eat food because he knows it's important. Patient states [facility] and support. Patient endorses hx of seeing Psychiatrist 7 years ago but stopped going during covid restrictions. Patient endorses interest in anxiety medication and seeking a MH provider. APPLICATION DEVELOPMENT TEAM LEAD provides patient with a list of MH providers that accept his insurance. APPLICATION DEVELOPMENT TEAM LEAD provides patient with senior resources and financial literacy resources from [employer]. ED provider prescribes patient PRN hydroxyzine upon d/c. APPLICATION DEVELOPMENT TEAM LEAD encourages patient to follow up with PCP, APPLICATION DEVELOPMENT TEAM LEAD offers to contact PCP but he states he will call them himself. Patient has upcoming PCP appt on 04/01/25 and upcoming urology appt as well. Plan: patient to d/c to home upon medical clearance, patient to f/u with outpatient providers and f/u with resources provided. DAVID Gomez
== END 2025-03-22 18:51 | disposition home or self-care (01) ==
PROVIDERS: Emergency Provider Emergency Medicine; PCP Nurse Practitioner Family
DX: F41.9 Anxiety disorder, unspecified (principal); R53.83 Other fatigue; G47.00 Insomnia, unspecified; R63.0 Anorexia; Z68.23 Body mass index [BMI] 23.0-23.9, adult; Z63.4 Disappearance and death of family member
CPT/HCPCS: 71045; 71260; 74177; 80053; 80305; 80320; 81001; 82550; 83605; 83690; 83735; 83880; 84443; 84484; 85025; 85610; 85730; 93005; 93010; 96360; 99284; Q9967

== ENCOUNTER → 2025-03-29 16:05 | Outpatient (CLI) | payer MEDICARE, SELFPAY ==
[2025-03-29 17:56] LABS: Prostate Specific Antigen 9.71 ng/mL (0.10-4.00)
== END ==
PROVIDERS: PCP Nurse Practitioner Family; Referring Provider Urology; Visit Provider Urology
DX: C61 Malignant neoplasm of prostate (principal); R97.20 Elevated prostate specific antigen [PSA]
CPT/HCPCS: 36415; 84153

== ENCOUNTER → 2025-03-30 15:24 | Outpatient (CLI) | payer MEDICARE, SELFPAY ==
[2025-03-31 11:12] LABS: Fecal Immunochemical Test Negative (Negative)
== END ==
LOC: LAB 15:25
PROVIDERS: PCP Nurse Practitioner Family; Referring Provider Nurse Practitioner Family; Visit Provider Nurse Practitioner Family
DX: Z12.11 Encounter for screening for malignant neoplasm of colon (principal)
CPT/HCPCS: 82274

== ENCOUNTER → 2025-04-06 16:33 | Outpatient (CLI) | payer MEDICARE, SELFPAY ==
[2025-04-06 19:05] LABS: Ferritin 88 ng/mL (18-464)
[2025-04-06 19:59] LABS: HEMOLYSIS < 15 (0-50); Iron 90 ug/dL (49-181)
[2025-04-06 20:09] LABS: Percent Iron Saturation 35 % (20-50); Total Iron Binding Capacity 257 ug/dL (261-462); Transferrin 226 mg/dL (206-381)
== END ==
PROVIDERS: PCP Nurse Practitioner Family; Referring Provider Nurse Practitioner Family; Visit Provider Nurse Practitioner Family
DX: D64.9 Anemia, unspecified (principal); R53.83 Other fatigue
CPT/HCPCS: 36415; 82728; 83540; 83550

== ENCOUNTER → 2025-05-19 14:45 | Outpatient (CLI) | payer MEDICARE, SELFPAY ==
[2025-05-19 15:55] LABS: Prostate Specific Antigen 7.88 ng/mL (0.10-4.00)
== END ==
PROVIDERS: PCP Nurse Practitioner Family; Referring Provider Nurse Practitioner Family; Visit Provider Urology
DX: C61 Malignant neoplasm of prostate (principal); R97.20 Elevated prostate specific antigen [PSA]
CPT/HCPCS: 36415; 84153

== ENCOUNTER → 2025-10-25 15:11 | Outpatient (CLI) | payer MEDICARE, SELFPAY ==
--- NOTE | 2025-10-25 15:12 | DI.US.S_ITS ---
PROCEDURE: US EXTREMITY NONVASC LOWER RT INDICATIONS: RIGHT MID ANTERIOR THIGH LUMP TECHNIQUE: Real-time scanning was performed of the right mid anterior thigh , with image documentation. COMPARISON: None. FINDINGS: At the site of clinical concern, there is a lobular heterogeneous hypervascular soft tissue mass measuring 12.6 x 4.4 x 6.4 cm. This mass has mixed cystic and solid components. Mass abuts the mid superficial femoral artery and vein. No adenopathy. IMPRESSION: Palpable mass in the anterior mid thigh corresponds very hypervascular mixed cystic and solid lesion measuring 12.6 x 4.4 x 6.4 cm. Imaging findings are concerning for primary soft tissue malignancy or metastatic disease until proven otherwise. Mass abuts the mid superficial femoral artery and vein. This could be better characterized with MRI with and without contrast. Dictated by: Laquita Kohler M.D. on 10/25/2025 at 17:14 Approved by: Laquita Kohler M.D. on 10/25/2025 at 17:16
== END ==
LOC: US 15:11
PROVIDERS: PCP Nurse Practitioner Family; Referring Provider Nurse Practitioner Family; Visit Provider Nurse Practitioner Family
DX: M79.89 Other specified soft tissue disorders (principal); R52 Pain, unspecified
CPT/HCPCS: 76882

== ENCOUNTER → 2025-11-01 17:20 | Outpatient (CLI) | payer MEDICARE, SELFPAY ==
--- NOTE | 2025-11-01 17:20 | DI.MRI.S_ITS ---
PROCEDURE: MR FEMUR RT WO/W CON INDICATIONS: f/u US R thigh TECHNIQUE: Noncontrast coronal T1 spin echo and STIR, sagittal T1 spin echo with fat saturation and STIR, axial T1 spin echo and T2 fast spin echo with fat saturation. After the administration of contrast, axial/sagittal/coronal T1 spin echo with fat saturation through the right thigh . COMPARISON: [facility], US, US EXTREMITY NONVASC LOWER RT, 10/25/2025, 15:32. FINDINGS: Corresponding to the finding on ultrasound there is a 12 x 1 x 5.4 x 3.8 centimeter heterogenously enhancing predominantly solid mass in the anterior compartment the medial right thigh within the vastus intermedius muscle with mass effect on the overlying vastus lip medialis. This abuts the distal femoral diaphysis medial cortex. The mass does NOT appear to traverse the intermuscular fascial planes to involve the adjacent neurovascular bundle of the superficial femoral artery. There is edema extending superiorly and inferior within the vastus intermedius. No marrow replacing osseous lesion or marrow edema. No cortical involvement. No lymphadenopathy. 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 Orthopedic Surgical Oncology referral recommended. Dictated by: Zan Damon M.D. on 11/02/2025 at 9:06 Approved by: Zan Damon M.D. on 11/02/2025 at 10:03
== END ==
PROVIDERS: PCP Nurse Practitioner Family; Referring Provider Nurse Practitioner Family; Visit Provider Nurse Practitioner Family
DX: R22.41 Localized swelling, mass and lump, right lower limb (principal); M79.606 Pain in leg, unspecified
CPT/HCPCS: 73720; A9579

== ENCOUNTER → 2025-11-15 14:49 | Outpatient (CLI) | payer MEDICARE, SELFPAY ==
[2025-11-15 15:29] LABS: Add Manual Diff / Slide Review NO; Hematocrit 37.0 % (41-53); Hemoglobin 12.7 g/dL (13.5-17.5); Lymphocytes Absolute Auto 1700 /uL (1100-4500); Mean Corpuscular HGB Conc 34.2 % (30-36); Mean Corpuscular Hemoglobin 30.8 PG (26-34); Mean Corpuscular Volume 90.0 fL (80-100); Platelet Count 311 X10^3/uL (150-400)
[2025-11-15 16:27] LABS: Prostate Specific Antigen 11.1 ng/mL (0.10-4.00)
== END ==
PROVIDERS: PCP Nurse Practitioner Family; Referring Provider Urology; Visit Provider Urology
DX: C61 Malignant neoplasm of prostate (principal); D64.9 Anemia, unspecified
CPT/HCPCS: 36415; 84153; 85025